=== PATIENT | female | born 1955 | race Caucasian/White ===

== ENCOUNTER → 2023-06-02 | Outpatient (REF) | payer MEDICARE ==
[~2023-06-02] MED LIST: ORACEA40 MG PO; Z.0.COUMADIN4 MG PO; Z.0.OMEPRAZOLE40 MG PO; Z.0.VESICARE5 MG PO; [UNRECOGNIZED DRUG - OTHER]
== END ==
LOC: MAMMO 12:30
PROVIDERS: ATTEND Internal Medicine Medical Oncology
DX: N63.10 Unspecified lump in the right breast, unspecified quadrant (principal)
CPT/HCPCS: 77066

== ENCOUNTER 2024-04-14 17:32 | Emergency (ER) | payer MEDICARE ==
[~2024-04-14] VITALS: Ht 154.9 cm; Wt 83.9 kg
[~2024-04-14 17:32] MED LIST changes: +ATORVASTATIN CA10 MG PO; +ENOXAPARIN80 MG/0.8 SC; +GLIPIZIDE5 MG PO; +LANTUS 3ML100 UNITS/ SQ; +LEVOCETIRIZINE D5 MG PO; +LOSARTAN POTASS25 MG PO; +TRULICITY3 MG/0.5 M SQ
[2024-04-14 18:06] VITALS: PULSE 81; RESP 11; TEMP 98.5; O2SAT 100
== END 2024-04-14 20:30 | disposition home or self-care (01) ==
LOC: ER 18:13
DX: S00.83XA Contusion of other part of head, initial encounter (principal); W21.03XA Struck by baseball, initial encounter; Y92.320 Baseball field as the place of occurrence of the external cause; E11.9 Type 2 diabetes mellitus without complications; Z85.3 Personal history of malignant neoplasm of breast; G47.30 Sleep apnea, unspecified
CPT/HCPCS: 70450; 99283

== ENCOUNTER 2024-10-09 18:54 | Emergency (ER) | payer MEDICARE ==
[~2024-10-09] VITALS: Ht 154.9 cm; Wt 78.5 kg
[2024-10-09 19:13] VITALS: TEMP 98.3
[2024-10-09] MEDS: SODIUM CHLORIDE 0.9% 1000ML 1,000 ML IV STA (19:37)
[2024-10-09 19:42] LABS: BASOPHILS % 0.6 % (0.0-1.0); EOSINOPHILS # (AUTO) 0.2 (0.0-0.4); EOSINOPHILS % 2.8 % (0.0-6.0); HEMATOCRIT 34.7 % (34.2-44.1); HEMOGLOBIN 11.2 g/dL (12.0-16.0); LYMPHOCYTES # (AUTO) 1.6 (1.0-3.2); LYMPHOCYTES % 22.4 % (18.0-39.1); MEAN CORPUSCULAR HEMOGLOBIN 25.5 pg (28-32); MEAN CORPUSCULAR HGB CONC 32.3 g/dL (31-35); MONOCYTES # (AUTO) 0.5 (0.2-0.8); MONOCYTES % 7.3 % (4.4-11.3); NEUTROPHILS # (AUTO) 4.7 (2.1-6.9); NEUTROPHILS % 66.3 % (38.7-80.0); PLATELET COUNT 204 x10e3/uL (140-360); RED BLOOD COUNT 4.39 x10e6/uL (3.6-5.1); RED CELL DISTRIBUTION WIDTH 16.2 % (11.7-14.4); WHITE BLOOD COUNT 7.02 x10e3/uL (4.8-10.8)
[2024-10-09 19:53] LABS: INR 1.45; PROTHROMBIN TIME 18.4 seconds (11.9-14.5)
[2024-10-09 20:04] LABS: ALBUMIN 3.9 g/dL (3.5-5.0); ALBUMIN/GLOBULIN RATIO 1.3 (0.8-2.0); ANION GAP 16.4 mmol/L (8-16); BILIRUBIN,TOTAL 0.3 mg/dL (0.2-1.2); CALCIUM 8.9 mg/dL (8.4-10.2); CREATININE, SERUM 1.05 mg/dL (0.57-1.11); POTASSIUM 4.4 mmol/L (3.5-5.1); TOTAL PROTEIN 6.8 g/dL (6.5-8.1)
[2024-10-09 20:12] LABS: TROPONIN I 0.01 ng/mL (0-0.300)
[2024-10-09 20:18] LABS: INFLUENZA A AG NEGATIVE (NEGATIVE); INFLUENZA B AG NEGATIVE (NEGATIVE)
[2024-10-09 20:19] LABS: CORONAVIRUS COVID-19 AG NEGATIVE (NEGATIVE)
[2024-10-09 22:03] VITALS: PULSE 70; RESP 17; O2SAT 98
== END 2024-10-09 22:42 | disposition home or self-care (01) ==
LOC: ER 19:00
DX: E11.65 Type 2 diabetes mellitus with hyperglycemia (principal); E78.00 Pure hypercholesterolemia, unspecified; Z11.52 Encounter for screening for COVID-19; R94.31 Abnormal electrocardiogram [ECG] [EKG]; Z85.3 Personal history of malignant neoplasm of breast
CPT/HCPCS: 36415; 71045; 80053; 82550; 82948; 83690; 83880; 84484; 85025; 85610; 93005; 99284